=== PATIENT | female | born 1990 ===

== ENCOUNTER 2021-01-31 01:48 | Emergency (ER) | payer SELFPAY ==
[2021-01-31] MEDS ORDERED: ALUM-MAG HYDROXIDE-SIMETHICONE 200-200-20MG/5ML ORAL LIQD 30 ML PO ONE (01:55)
[2021-01-31] MEDS ORDERED: SODIUM CHLORIDE 0.9% 1000 ML 1,000 ML IV ONE (01:55)
[2021-01-31] MEDS ORDERED: FAMOTIDINE 20 MG/2 ML INJ IV ONE (01:55)
[2021-01-31] MEDS ORDERED: LIDOCAINE VISCOUS 2% 15 ML ORAL LIQD PO ONE (01:55)
[2021-01-31] MEDS ORDERED: ONDANSETRON 4 MG/2 ML INJ IV ONE (01:55)
[2021-01-31] MEDS ORDERED: ASPIRIN 81 MG TAB CHEW PO ONE (01:56)
--- NOTE | 2021-01-31 02:02 | Event Note ---
ED Screening Note Date of service: 01/31/21 Time: 02:01 ED Screening Note: Patient is a 30-year-old female with a history of tobacco abuse and s/p lap cholecystectomy who presents to the ED with acute onset persistent severe epigastric pain that radiates to the substernal area with nausea for the last 1 hour after eating a sandwich at home. Patient states that the pain is sharp, constant, persistent and severe. Patient denies dizziness, syncope, fever, chills, cough, shortness of breath, hematemesis, diarrhea, dysuria, urinary frequency and urgency, change in vision, palpitations, neck pain, headache, vaginal bleeding or vaginal discharge. This initial assessment/diagnostic orders/clinical plan/treatment(s) is/are subject to change based on patients health status, clinical progression and re- assessment by fellow clinical providers in the ED. Further treatment and workup at subsequent clinical providers discretion. Patient/guardian urged not to elope from the ED as their condition may be serious if not clinically assessed and managed. Initial orders include: CBC, CMP, UA, hCG serum, lipase
[2021-01-31 02:25] LABS: Basophils % (Auto) 0.3 % (0.0-1.8); Eosinophils # (Auto) 0.2 K/mm3 (0.0-0.4); Hematocrit 38.6 % (30.3-42.9); Hemoglobin 13.5 gm/dl (10.1-14.3); Lymphocytes # (Auto) 3.8 K/mm3 (1.2-5.4); Lymphocytes % (Auto) 35.3 % (13.4-35.0); Mean Corpuscular HGB Conc 35 % (30-34); Mean Corpuscular Volume 95 fl (79-97); Monocytes # (Auto) 0.8 K/mm3 (0.0-0.8); Monocytes % (Auto) 7.2 % (0.0-7.3); Platelet Count 225 K/mm3 (140-440); Red Blood Count 4.08 M/mm3 (3.65-5.03); Red Cell Distribution Width 13.8 % (13.2-15.2)
[2021-01-31 02:39] LABS: Alanine Aminotransferase 14 units/L (7-56); Albumin 4.3 g/dL (3.9-5); Blood Urea Nitrogen 19 mg/dL (7-17); Calcium 8.7 mg/dL (8.4-10.2); Hemolysis Index 1
[2021-01-31 02:40] LABS: BUN/Creatinine Ratio 27
--- NOTE | 2021-01-31 03:19 | XRay Report ---
CHEST 1 VIEW INDICATION / CLINICAL INFORMATION: chest pain, epigastric pain. FINDINGS: SUPPORT DEVICES: None. HEART / MEDIASTINUM: No significant abnormality. LUNGS / PLEURA: No significant pulmonary or pleural abnormality. No pneumothorax. ADDITIONAL FINDINGS: No significant additional findings. IMPRESSION: 1. No acute findings. Signer Name: Marcin Eubanks MD Signed: 01/31/2021 3:15 AM Workstation Name: [id number]
--- NOTE | 2021-01-31 03:29 | Emergency Department Report ---
ED Abdominal Pain HPI - General Chief Complaint: Chest Pain Stated Complaint: CHEST PAIN, NUMBNESS IN LT ARM Time Seen by Provider: 01/31/21 03:15 Source: patient Mode of arrival: Ambulatory Limitations: No Limitations - History of Present Illness Initial Comments: Patient is 30 years old female with no significant past medical history. Patient presented to the ER complaining of epigastric abdominal pain that radiated to her back. Patient stated that pain started all of a sudden. Patient described the pain as sharp associated with nausea but no vomiting. Patient stated that she did not have any fever or chills. She also mentioned that she has been drinking alcohol approximately 1 or 2 days ago. Gallbladder removed several years ago. MD Complaint: abdominal pain -: Sudden, Last night Location: epigastric Radiation: back Migration to: no migration Severity: moderate Severity scale (0 -10): 5 Quality: sharp Associated Symptoms: nausea ED Review of Systems ROS: Stated complaint: CHEST PAIN, NUMBNESS IN LT ARM Other details as noted in HPI Comment: All other systems reviewed and negative Constitutional: denies: chills, fever Respiratory: denies: cough, shortness of breath, SOB with exertion Cardiovascular: denies: chest pain Gastrointestinal: abdominal pain, nausea. denies: vomiting, diarrhea, constipation, hematemesis, melena, hematochezia Neurological: denies: headache, weakness ED Past Medical Hx - Past Medical History Previous Medical History?: Yes Hx Asthma: Yes - Surgical History Past Surgical History?: No - Social History Smoking Status: Current Some Day Smoker Substance Use Type: None ED Physical Exam - General Limitations: No Limitations General appearance: alert, in no apparent distress - Head Head exam: Present: atraumatic, normocephalic, normal inspection - Eye Eye exam: Present: normal appearance - ENT ENT exam: Present: normal exam, normal orophraynx, mucous membranes moist - Neck Neck exam: Present: normal inspection, full ROM. Absent: tenderness, meningismus - Respiratory Respiratory exam: Present: normal lung sounds bilaterally - Cardiovascular Cardiovascular Exam: Present: regular rate, normal rhythm, normal heart sounds - GI/Abdominal GI/Abdominal exam: Present: soft, normal bowel sounds. Absent: distended, tenderness, guarding, rebound, rigid, mass, bruit, pulsatile mass, hernia - Extremities Exam Extremities exam: Present: normal inspection, full ROM, normal capillary refill. Absent: tenderness - Back Exam Back exam: Present: normal inspection, full ROM. Absent: CVA tenderness (R), CVA tenderness (L) - Neurological Exam Neurological exam: Present: alert, oriented X3, CN II-XII intact - Psychiatric Psychiatric exam: Present: normal mood - Skin Skin exam: Present: warm, intact, normal color ED Course Vital Signs 01/31/21 02:10 Temperature 98.0 F Pulse Rate 66 Respiratory 20 Rate Blood Pressure 101/54 O2 Sat by Pulse 100 Oximetry ED Medical Decision Making - Lab Data Result diagrams: 01/31/21 02:06 01/31/21 02:06 - Medical Decision Making Patient is 30 years old female with no significant past medical history. Patient presented to the ER complaining of epigastric abdominal pain that radiated to her back. Patient stated that pain started all of a sudden. Patient described the pain as sharp associated with nausea but no vomiting. Patient stated that she did not have any fever or chills. She also mentioned that she has been drinking alcohol approximately 1 or 2 days ago. Gallbladder removed several years ago. EKG is unremarkable. Chest x-ray is negative for acute finding. Labs reviewed and is unremarkable except for elevated lipase of 167 consistent with alcoholic pancreatitis. Patient given Toradol 60 mg IM for pain and advised to follow-up with her primary care physician in the next 2 to 3 days and to return to the ER she develop any new symptoms. Critical care attestation.: If time is entered above; I have spent that time in minutes in the direct care of this critically ill patient, excluding procedure time. ED Disposition Clinical Impression: Acute abdominal pain, Acute pancreatitis Disposition: - TO HOME OR SELFCARE Is pt being admited?: No Condition: Stable Instructions: Acute Pancreatitis, [id number], Abdominal Pain, Adult, [id number] Referrals: [facility] [Provider Group] - 3-5 Days
[2021-01-31] MEDS ORDERED: KETOROLAC 60 MG/2 ML INJ IM ONE (03:54)
[2021-01-31 03:55] LABS: Bilirubin,Urine NEG (Negative); Blood,Urine NEG (Negative); Color,Urine Yellow (Yellow); Mucus,Urine 1+ /HPF; Protein,Urine <15 mg/dL mg/dL (Negative); WBC,Urine < 1.0 /HPF (0.0-6.0)
[2021-01-31 04:57] VITALS: BP 110/78
--- NOTE | 2021-01-31 11:18 | Electrocardiograph Report ---
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
== END 2021-01-31 04:56 | disposition home or self-care (01) ==
LOC: ED 01:48
DX: K85.90 Acute pancreatitis without necrosis or infection, unspecified (principal); J45.909 Unspecified asthma, uncomplicated; F17.200 Nicotine dependence, unspecified, uncomplicated; Z98.890 Other specified postprocedural states; Z79.899 Other long term (current) drug therapy
CPT/HCPCS: 36415; 71045; 80053; 81001; 83690; 84484; 84703; 85025; 93005; 96372; 99283; J1885